=== PATIENT | female | born 1995 | race African-American/Black ===

== ENCOUNTER 2021-10-22 06:14 | Inpatient (IN) | payer BC ==
[2021-10-22 06:42] VITALS: BMI 38.0
[2021-10-22] MEDS ORDERED: Methylergonovine 0.2 MG/ML VIAL IM PRN (07:49)
[2021-10-22] MEDS ORDERED: HYDROcodone/Acetaminophen 5/325 mg Tablet PO PRN (07:49)
[2021-10-22] MEDS ORDERED: Diphenoxylate HCl/Atropine Tablet PO PRN (07:49)
[2021-10-22] MEDS ORDERED: Butorphanol Tartrate 1 MG/ML VIAL SLOW IVP PRN (07:49)
[2021-10-22] MEDS ORDERED: Lidocaine 1% (PF) 30 ML VIAL SC PRN (07:49)
[2021-10-22] MEDS ORDERED: Ondansetron PF 4 MG/2 ML Vial IVP PRN ×3 (07:49→21:05)
[2021-10-22] MEDS ORDERED: Carboprost 250 MCG/ML AMP IM PRN (07:49)
[2021-10-22] MEDS ORDERED: Acetaminophen 500 MG TAB PO PRN (07:49)
[2021-10-22] MEDS ORDERED: Misoprostol 200 MCG TAB PR PRN (07:49)
[2021-10-22] MEDS ORDERED: hydrALAZINE 20 MG/ML VIAL SLOW IVP PRN (07:49)
[2021-10-22] MEDS ORDERED: Ibuprofen 800 MG TAB PO PRN (07:49)
[2021-10-22] MEDS ORDERED: Promethazine HCl 25 MG/ML VIAL IM PRN ×3 (07:49→21:05)
[2021-10-22] MEDS ORDERED: NS w/ Oxytocin 30 units 500 ML IV SCH ×2 (08:00)
[2021-10-22 08:13] LABS: Hemoglobin 12.3 g/dL (12.0-15.5); Mean Corpuscular HGB CONC 34.7 g/dL (32.0-36.0); Mean Corpuscular Hemoglobin 28.1 pg (27.0-33.0); Mean Platelet Volume 12.8 fl (7.4-10.4); Platelet Count 211 10x3/uL (150-450); RBC Distribution Width 13.8 % (11.5-14.5); Red Blood Cell (RBC) Count 4.37 10x6/uL (3.90-5.03); White Blood Cell (WBC) Count 11.2 10x3/uL (3.5-10.5)
[2021-10-22 08:41] LABS: Syphilis Antibody Nonreactive (Nonreactive); Syphilis Antibody Index 0.05 S/CO (<1.00 Non-Reactive)
[2021-10-22 08:42] LABS: Hep B Surf Ag Non-Reactive S/CO (NonReactive)
[2021-10-22 08:52] LABS: HBSAg Index 0.23 S/CO (0-0.99)
[2021-10-22] MEDS ORDERED: Fentanyl 2 mcg/Bup 0.1% Cadd 100 ML ONE ×2 (09:00→18:56)
[2021-10-22] MEDS: Lactated Ringer's 1,000 ML IV SCH (09:49)
[2021-10-22] MEDS ORDERED: Lactated Ringer's 500 ML IV PRN (10:31)
[2021-10-22] MEDS ORDERED: diphenhydrAMINE 50 MG/ML VIAL IVP PRN ×2 (10:31→21:05)
[2021-10-22] MEDS ORDERED: ePHEDrine Sulfate 50 MG/10 ML VIAL SLOW IVP PRN (10:31)
[2021-10-22] MEDS ORDERED: Acetaminophen 325 MG TAB PO PRN (10:31)
[2021-10-22] MEDS ORDERED: Naloxone HCl 0.4 mg/ml Vial IVP PRN ×4 (10:31→21:05)
[2021-10-22] MEDS ORDERED: Moisturizing Cream (Eucerin) 113 GM JAR TOP PRN ×2 (10:31→21:05)
[2021-10-22] MEDS ORDERED: Communication Order-Pharmacy FS SCH ×2 (10:45→21:15)
[2021-10-22] MEDS ORDERED: Fentanyl 2 mcg/Bupivacaine 0.1% Cassette 100 ML EPIDURAL SCH (10:45)
[2021-10-22 16:56] LABS: SARS-CoV-2 NAA Rapid Test Not Detected (NotDetected)
[2021-10-22] MEDS ORDERED: Famotidine/PF 20 mg/2ml Vial SLOW IVP PRN (18:14)
[2021-10-22] MEDS ORDERED: Bicitra 30 ML UDCUP PO PRN (18:14)
[2021-10-22] MEDS ORDERED: Azithromycin 500 MG in Sodium Chloride 0.9% 250 ML 250 ML IVPB SCH (18:15)
[2021-10-22] MEDS ORDERED: CEFAZOLIN 2 GM in Sodium Chloride 0.9% 100 ML IVPB SCH (19:00)
[2021-10-22] MEDS ORDERED: Oxytocin 10 UNITS/ML VIAL ONE (20:02)
[2021-10-22] MEDS ORDERED: Morphine PF 10 MG/10 ML VIAL ONE (20:02)
[2021-10-22] MEDS ORDERED: Fentanyl 100 MCG/2 ML VIAL ONE (20:02)
[2021-10-22] MEDS ORDERED: Ondansetron PF 4 MG/2 ML Vial ONE (20:52)
[2021-10-22] MEDS ORDERED: Ketorolac Tromethamine 30 MG/ML VIAL ONE (20:52)
[2021-10-22] MEDS ORDERED: Ondansetron HCl/PF 4 MG/2 ML Vial IVP PRN (21:05)
[2021-10-22] MEDS ORDERED: Ketorolac Tromethamine 30 MG/ML VIAL IVP PRN (21:05)
[2021-10-22] MEDS ORDERED: Promethazine HCl 25 MG SUPP PR PRN (21:05)
[2021-10-22] MEDS ORDERED: Naloxone HCl 0.4 mg/ml Vial IV PRN (21:05)
[2021-10-22] MEDS ORDERED: Fentanyl 100 MCG/2 ML VIAL SLOW IVP PRN (21:05)
[2021-10-22] MEDS ORDERED: HYDROmorphone 2 MG/ML VIAL SLOW IVP PRN (21:05)
[2021-10-22] MEDS ORDERED: Meperidine HCl/PF 25 MG/ML VIAL SLOW IVP PRN (21:05)
[2021-10-23] MEDS ORDERED: diphenhydrAMINE 25 MG CAP PO PRN (00:13)
[2021-10-23] MEDS ORDERED: hydrALAZINE 20 MG/ML VIAL SLOW IVP PRN (00:13)
[2021-10-23] MEDS ORDERED: Ondansetron PF 4 MG/2 ML Vial IVP PRN (00:13)
[2021-10-23] MEDS ORDERED: Boostrix 0.5 ML (Tdap) VIAL IM ONE (00:13)
[2021-10-23] MEDS ORDERED: Bisacodyl 10 MG SUPP PR PRN (00:13)
[2021-10-23] MEDS ORDERED: Acetaminophen 325 MG TAB PO PRN (00:13)
[2021-10-23] MEDS ORDERED: Simethicone Chewable 80 MG TAB PO PRN (00:13)
[2021-10-23] MEDS ORDERED: Lanolin Ointment 7 GM TUBE TOP PRN (00:13)
[2021-10-23] MEDS ORDERED: Promethazine HCl 25 MG/ML VIAL IM PRN (00:13)
[2021-10-23] MEDS ORDERED: Ferrous Sulfate 325 MG TAB PO SCH (00:30)
[2021-10-23] MEDS ORDERED: Docusate 100 MG CAP PO SCH (00:30)
[2021-10-23 04:28] LABS: Hemoglobin 10.3 g/dL (12.0-15.5); Mean Corpuscular HGB CONC 34.3 g/dL (32.0-36.0); Mean Corpuscular Hemoglobin 27.5 pg (27.0-33.0); Mean Corpuscular Volume 80.2 fl (81.6-98.3); Mean Platelet Volume 12.3 fl (7.4-10.4); Platelet Count 184 10x3/uL (150-450); RBC Distribution Width 14.1 % (11.5-14.5); Red Blood Cell (RBC) Count 3.74 10x6/uL (3.90-5.03); White Blood Cell (WBC) Count 19.8 10x3/uL (3.5-10.5)
[2021-10-23] MEDS: Lactated Ringer's 1,000 ML IV SCH ×2 (07:37→07:38)
[2021-10-23] MEDS: Ferrous Sulfate 325 MG TAB PO SCH (07:37)
[2021-10-23] MEDS: Docusate 100 MG CAP PO SCH ×2 (08:27→21:26)
[2021-10-23] MEDS ORDERED: HYDROcodone/Acetaminophen 5/325 mg Tablet PO PRN (09:15)
[2021-10-23] MEDS: HYDROcodone/Acetaminophen 5/325 mg Tablet PO PRN ×2 (10:35→18:35)
[2021-10-23] MEDS: Ibuprofen 800 MG TAB PO SCH ×2 (13:55→21:25)
[2021-10-24] MEDS: Ferrous Sulfate 325 MG TAB PO SCH ×3 (03:56→21:01)
[2021-10-24] MEDS: Ibuprofen 800 MG TAB PO SCH ×3 (05:29→22:00)
[2021-10-24] MEDS: Docusate 100 MG CAP PO SCH ×2 (07:50→22:00)
[2021-10-25] MEDS: Ibuprofen 800 MG TAB PO SCH (04:51)
[2021-10-25 08:14] VITALS: BP 122/67; TEMP 98.3
[2021-10-25] MEDS: Ferrous Sulfate 325 MG TAB PO SCH (08:48)
[2021-10-25] MEDS: Docusate 100 MG CAP PO SCH (09:56)
== END 2021-10-25 13:15 | disposition home or self-care (01) | DRG 788 ==
LOC: CSHLD/OP 06:14 → CSHLD 08:22 → CSHPP 23:45
PROVIDERS: ADMIT Student in an Organized Health Care Education/Training Program; ATTEND Student in an Organized Health Care Education/Training Program
PROC: 10D00Z1 Extraction of Products of Conception, Low, Open Approach (ICD-10-PCS; principal; 2021-10-22)
PROC: 10907ZC Drainage of Amniotic Fluid, Therapeutic from Products of Conception, Via Natural or Artificial Opening (ICD-10-PCS; 2021-10-22)
DX: O77.0 Labor and delivery complicated by meconium in amniotic fluid (principal); Z3A.40 40 weeks gestation of pregnancy; Z37.0 Single live birth; Z20.822 Contact with and (suspected) exposure to COVID-19; O32.4XX0 Maternal care for high head at term, not applicable or unspecified; O76 Abnormality in fetal heart rate and rhythm complicating labor and delivery; O62.1 Secondary uterine inertia; O32.8XX0 Maternal care for other malpresentation of fetus, not applicable or unspecified; D50.0 Iron deficiency anemia secondary to blood loss (chronic); O90.81 Anemia of the puerperium
CPT/HCPCS: 36415; 51702; 85027; 86780; 86850; 86900; 86901; 87340; 99285; J1200; J1885; J2274; J2405; J2590; J3010; J7120

== ENCOUNTER 2024-01-07 05:37 | Inpatient (IN) | payer BC ==
[2024-01-06 11:52] LABS: Hematocrit 34.1 % (34.9-44.5); Hemoglobin 11.6 g/dL (12.0-15.5); Mean Corpuscular Hemoglobin 26.5 pg (27.0-33.0); Mean Platelet Volume 12.9 fL (7.4-10.4); Platelet Count 220 10x3/uL (150-450); RBC Distribution Width 13.2 % (11.5-14.5); Red Blood Cell (RBC) Count 4.37 10x6/uL (3.90-5.03); White Blood Cell (WBC) Count 7.8 10x3/uL (3.5-10.5)
[2024-01-06 12:20] LABS: HBsAg Index 0.25 S/CO (0-0.99); HIV (1/2) Antibody/Antigen Non-Reactive (NonReactive); HIV 1/2 INDEX 0.11 S/CO (<1.00); Hep B Surf Ag Non-Reactive S/CO (NonReactive)
[2024-01-06 12:21] LABS: Syphilis Antibody Nonreactive (Nonreactive); Syphilis Antibody Index 0.07 S/CO (<1.00 Non-Reactive)
[~2024-01-07 05:37] MED LIST: Bicitra 30 ML UDCUP PO PRN; CEFAZOLIN 2 GM in Sodium Chloride 0.9% 100 ML IVPB SCH; Ondansetron PF 4 MG/2 ML Vial IVP PRN; Oxytocin 30 units/NS 500 ML 500 ML IV SCH; Promethazine HCl 25 MG/ML VIAL IM PRN; hydrALAZINE 20 MG/ML VIAL SLOW IVP PRN
[2024-01-07 06:08] VITALS: BMI 36.6
[2024-01-07] MEDS: Lactated Ringer's 1,000 ML IV SCH ×2 (07:06)
[2024-01-07] MEDS: Famotidine/PF 20 mg/2ml Vial SLOW IVP PRN (07:11)
[2024-01-07] MEDS: CEFAZOLIN 2 GM VIAL ONE (07:11)
[2024-01-07] MEDS ORDERED: Simethicone Chewable 80 MG TAB PO PRN (09:55)
[2024-01-07] MEDS ORDERED: Ondansetron PF 4 MG/2 ML Vial IVP PRN (09:55)
[2024-01-07] MEDS ORDERED: Zolpidem Tartrate 5 MG TAB PO PRN (09:55)
[2024-01-07] MEDS ORDERED: hydrALAZINE 20 MG/ML VIAL SLOW IVP PRN (09:55)
[2024-01-07] MEDS ORDERED: HYDROcodone/Acetaminophen 5/325 mg Tablet PO PRN ×2 (09:55)
[2024-01-07] MEDS ORDERED: Promethazine HCl 25 MG/ML VIAL IM PRN (09:55)
[2024-01-07] MEDS ORDERED: Oxytocin 30 units/NS 500 ML 500 ML IV SCH (09:55)
[2024-01-07] MEDS ORDERED: Acetaminophen 325 MG TAB PO PRN (09:55)
[2024-01-07] MEDS ORDERED: Meperidine HCl/PF 25 MG (1 mL) VIAL IM PRN (09:55)
[2024-01-07] MEDS: Docusate 100 MG CAP PO SCH ×2 (11:07→21:02)
[2024-01-07] MEDS: diphenhydrAMINE 25 MG CAP PO PRN (11:07)
[2024-01-07] MEDS: Prenatal Vitamin 1 TAB PO SCH (11:07)
[2024-01-07] MEDS: Morphine PF 10 MG/10 ML VIAL ONE ×2 (11:25)
[2024-01-07] MEDS: Boostrix 0.5 ML (Tdap) VIAL (>/=7 yrs of age) IM ONE (11:25)
[2024-01-07] MEDS: Ketorolac Tromethamine 30 MG (1 mL) VIAL ONE (11:25)
[2024-01-07] MEDS: Ibuprofen 800 MG TAB PO SCH (14:04)
[2024-01-08 04:02] LABS: Hematocrit 30.1 % (34.9-44.5); Hemoglobin 10.3 g/dL (12.0-15.5); Mean Corpuscular HGB CONC 34.2 g/dL (32.0-36.0); Mean Corpuscular Hemoglobin 26.9 pg (27.0-33.0); Mean Corpuscular Volume 78.6 fL (81.6-98.3); Mean Platelet Volume 12.4 fL (7.4-10.4); Platelet Count 175 10x3/uL (150-450); RBC Distribution Width 13.2 % (11.5-14.5); Red Blood Cell (RBC) Count 3.83 10x6/uL (3.90-5.03)
[2024-01-08] MEDS: Prenatal Vitamin 1 TAB PO SCH (09:25)
[2024-01-09 08:35] VITALS: TEMP 98.5
[2024-01-09 11:23] VITALS: BP 113/74
== END 2024-01-09 12:25 | disposition home or self-care (01) | DRG 788 ==
LOC: CSHLD 05:37 → CSHPP 09:55
PROVIDERS: ADMIT Obstetrics & Gynecology; ATTEND Obstetrics & Gynecology
PROC: 10D00Z1 Extraction of Products of Conception, Low, Open Approach (ICD-10-PCS; principal; 2024-01-07)
DX: O34.211 Maternal care for low transverse scar from previous cesarean delivery (principal); Z3A.39 39 weeks gestation of pregnancy; Z37.0 Single live birth; O69.81X0 Labor and delivery complicated by cord around neck, without compression, not applicable or unspecified
CPT/HCPCS: 36415; 51702; 85027; 86780; 86850; 86900; 86901; 87340; 87389; J1885; J2274; J3490; J7120